=== PATIENT | female | born 2000 | race Hispanic/Latino ===

== ENCOUNTER → 2024-08-01 | Outpatient (CLI) | payer OTHER ==
--- NOTE | 2024-08-01 15:17 | HMCIMG ---
MR KNEE RIGHT WO HISTORY: Pain COMPARISON: None TECHNIQUE: MRI of the right knee was performed utilizing multiple pulse sequences in axial, coronal and sagittal planes. Patient was not given contrast through intravenous route. FINDINGS: No abnormal signal intensity is seen of the visualized bony structure. The anterior cruciate and posterior cruciate ligaments are grossly intact. The medial and lateral collateral ligaments are also intact. Quadriceps tendon and patellar tendon are within normal limits. There may be minimal intrasubstance tear involving the medial and lateral menisci. No evidence of Almazan's cyst is seen. IMPRESSION: 1. No acute finding.
--- NOTE | 2024-08-01 16:00 | HMCIMG ---
MR KNEE LEFT WO HISTORY: Right knee pain COMPARISON: None TECHNIQUE: MRI of the left knee was performed utilizing multiple pulse sequences in axial, coronal and sagittal planes. Patient was not given contrast through intravenous route. FINDINGS: No abnormal signal intensity is seen of the visualized bony structure. The anterior cruciate and posterior cruciate ligaments are grossly intact. The medial and lateral collateral ligaments are also intact. Quadriceps tendon and patellar tendon are within normal limits. There is minimal intrasubstance tear involving the medial and lateral menisci. Tiny joint effusion is seen. No evidence of Almazan's cyst is seen. IMPRESSION: 1. Tiny joint effusion. No other acute finding.
== END | disposition home or self-care (01) ==
LOC: RAH 13:53
PROVIDERS: ATTEND Orthopaedic Surgery
DX: M25.462 Effusion, left knee (principal); M23.91 Unspecified internal derangement of right knee; M25.561 Pain in right knee
CPT/HCPCS: 73721